=== PATIENT | male | born 1995 | race Caucasian/White ===

== ENCOUNTER 2018-11-14 11:26 | Emergency (ER) | payer BC ==
[~2018-11-14] VITALS: Ht 185.4 cm; Wt 122.9 kg
[2018-11-14 11:44] VITALS: BP 145/85
[2018-11-14] MEDS ORDERED: NAPROXEN 250 MG TABLET ONE (12:06)
[2018-11-14] MEDS: NAPROXEN 500 MG TABLET PO STA (12:10)
--- NOTE | 2018-11-14 12:11 | NUR ---
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
--- NOTE | 2018-11-14 13:20 | NUR ---
Patient discharged to home in stable condition. Written and verbal after care instructions given. Pt was issued crsutches. Patient verbalizes understanding of instruction.
== END 2018-11-14 13:22 | disposition home or self-care (01) ==
LOC: EDBD 11:26 → ER 11:26
DX: S46.911A Strain of unspecified muscle, fascia and tendon at shoulder and upper arm level, right arm, initial encounter (principal); S90.31XA Contusion of right foot, initial encounter; F41.9 Anxiety disorder, unspecified; G47.00 Insomnia, unspecified; V43.52XA Car driver injured in collision with other type car in traffic accident, initial encounter; Y93.89 Activity, other specified; Y92.410 Unspecified street and highway as the place of occurrence of the external cause; Y99.8 Other external cause status
CPT/HCPCS: 73030-TC; 73630-TC

== ENCOUNTER 2019-02-15 20:06 | Emergency (ER) | payer BC ==
[~2019-02-15] VITALS: Ht 182.9 cm; Wt 127.0 kg
[2019-02-15] MEDS ORDERED: KETOROLAC TROMETHAMINE INJ 60 MG/2 ML VIAL IM ONE (20:43)
--- NOTE | 2019-02-15 20:45 | NUR ---
BIB SELF FROM HOME. AAOX4. BREATHING EVEN AND UNLABORED. AMBULATORY. C/O SORETHROAT STARTED @ 7AM AND FEVER STARTING NOON. PT ALSO COMPLAINS OF MIGRAINE HEADACHE. PT REPORTS TAKING IBUPROHEN, NYQUIL, DAYQUIL AND ATB THAT HIS MD PRESCRIBE. TO ER BED 11. ANDRE LEAL AT BEDSIDE. AWAITING ORDERS
[2019-02-15] MEDS ORDERED: diphenhydrAMINE HCL 50 MG/ML VIAL ONE (20:58)
[2019-02-15] MEDS ORDERED: METOCLOPRAMIDE HCL 10 MG/2 ML VIAL ONE (20:58)
[2019-02-15] MEDS ORDERED: DEXAMETHASONE SOD PHOSPHATE 10 MG/ML VIAL ONE (20:58)
[2019-02-15] MEDS ORDERED: METOCLOPRAMIDE HCL 10 MG/2 ML VIAL IV ONE (21:00)
[2019-02-15] MEDS ORDERED: KETOROLAC TROMETHAMINE INJ 30 MG/ML VIAL IV ONE (21:00)
[2019-02-15] MEDS ORDERED: IV NS 0.9% 1,000 ML BAG IV ONE (21:00)
[2019-02-15] MEDS ORDERED: DEXAMETHASONE SOD PHOSPHATE 10 MG/ML VIAL IV ONE (21:00)
[2019-02-15] MEDS ORDERED: diphenhydrAMINE HCL 50 MG/ML VIAL IV ONE (21:00)
[2019-02-15] MEDS ORDERED: ACETAMINOPHEN 325 MG TABLET PO ONE (22:00)
[2019-02-15 22:23] VITALS: BP 125/67
== END 2019-02-15 22:23 | disposition home or self-care (01) ==
LOC: ER 20:06
DX: J02.9 Acute pharyngitis, unspecified (principal); R50.9 Fever, unspecified; G43.909 Migraine, unspecified, not intractable, without status migrainosus; G47.00 Insomnia, unspecified; F41.9 Anxiety disorder, unspecified; F10.10 Alcohol abuse, uncomplicated; E66.9 Obesity, unspecified; R59.0 Localized enlarged lymph nodes; Y90.9 Presence of alcohol in blood, level not specified
CPT/HCPCS: 96374; 96375; 99283; J1100; J1200; J1885; J2765; J7030

== ENCOUNTER 2019-08-16 04:17 | Emergency (ER) | payer BC ==
[~2019-08-16] VITALS: Ht 182.9 cm; Wt 127.0 kg
[2019-08-16] MEDS ORDERED: ONDANSETRON HCL/PF 4 MG/2 ML VIAL ONE (04:28)
[2019-08-16] MEDS ORDERED: ONDANSETRON HCL/PF 4 MG/2 ML VIAL IV ONE (04:30)
[2019-08-16 04:41] LABS: BASOPHILS % (AUTO) 0.4 % (0.0-2.0); EOSINOPHILS % (AUTO) 1.4 % (0.0-6.0); HEMATOCRIT 43 % (39-51); HEMOGLOBIN 14.2 g/dL (13.5-17.5); LYMPHOCYTES # (AUTO) 0.6 /CMM (0.8-4.8); LYMPHOCYTES % (AUTO) 11.1 % (20.0-44.0); MEAN CORPUSCULAR HGB CONC 33 g/dl (31.0-36.0); MEAN CORPUSCULAR VOLUME 82 fL (80-96); MONOCYTES # (AUTO) 0.5 /CMM (0.1-1.30); NEUTROPHILS # (AUTO) 4.6 /CMM (1.8-8.9); NEUTROPHILS % (AUTO) 79.1 % (43.0-81.0); PLATELET COUNT (AUTO) 148 /CMM (150-450); RED BLOOD CELL COUNT(AUTO) 5.25 MIL/uL (4.5-6.0); WHITE BLOOD COUNT (AUTO) 5.8 K/uL (4.3-11.0)
[2019-08-16 04:50] LABS: CALCIUM, SERUM 8.6 mg/dL (8.5-10.1); POTASSIUM 4.1 mmol/L (3.5-5.1)
--- NOTE | 2019-08-16 04:50 | NUR ---
BIBSELF W/ FIANCE FROM HOME. TO ER BED 9. AAOX4. NO RESP DISTRESS. AMBULATORY. C/O FEVER. PER PT, HE WAS AT THE [facility] 3 DAYS AGO AND GPT DIAGNOSED WITH PNA. HE CURRENTLY ON ZPACK ON HIS 2ND DAY. PT PRESENTED W/ TEMP OF 102.6, REPORTEDLY TAKEN MOTRIN 400MG AND TYLENOL 100MG AT 0340 AM. PT REPORTS SOB AND NASUEA. WAS AT BEDSIDE FOR EVAL. ORDERS RECEIVED, NOTED AND CARRIED OUT. IV LINE OBTAINED ON THE R AC 18G. BLOOD DRAWN AND GIVEN TO LAB TECHAT BEDSIDE.
[2019-08-16] MEDS ORDERED: IPRATROPIUM NEB FS 0.5 MG/2.5 ML AMPUL.NEB ONE (04:53)
[2019-08-16] MEDS ORDERED: ALBUTEROL FS 2.5 MG/0.5 ML VIAL.NEB ONE (04:55)
[2019-08-16] MEDS ORDERED: IV NS 0.9% 1,000 ML IV PRN (05:00)
[2019-08-16] MEDS ORDERED: ALBUTEROL FS 2.5 MG/3 ML VIAL.NEB NEB ONE (05:00)
[2019-08-16] MEDS ORDERED: IPRATROPIUM NEB FS 0.5 MG/2.5 ML AMPUL.NEB NEB ONE (05:00)
--- NOTE | 2019-08-16 05:25 | NUR ---
PT TO RADIOLOGY ON WHEELCHAIR
--- NOTE | 2019-08-16 05:51 | NUR ---
Patient discharged to home in stable condition. Written and verbal after care instructions given. Patient verbalizes understanding of instruction.IV removed. Catheter intact and site benign. Pressure and 4x4 applied to site. No bleeding noted. Pt ambulatory with a steady gait
[2019-08-16 05:53] VITALS: BP 142/79
== END 2019-08-16 05:53 | disposition home or self-care (01) ==
LOC: ER 04:23
DX: J18.9 Pneumonia, unspecified organism (principal); R91.8 Other nonspecific abnormal finding of lung field; G47.00 Insomnia, unspecified; F41.9 Anxiety disorder, unspecified; F10.10 Alcohol abuse, uncomplicated; Y90.9 Presence of alcohol in blood, level not specified
CPT/HCPCS: 36415; 71046; 80048; 85025; 94640; 96374; 99284; J2405; J7030